=== PATIENT | female | born 1945 | race Caucasian/White ===

== ENCOUNTER 2018-10-21 18:52 | Inpatient (IN) | payer MEDICARE ==
[~2018-10-21] VITALS: Ht 157.5 cm; Wt 111.6 kg
--- NOTE | 2018-10-21 19:01 | NUR ---
Patient arrived at 1810 via [facility], Vitals: 122/58, 99% on room air, 63 pulse, 98.2 axillary temperature, 19 respirations, Edema noted throughout body, patient used bed villanueva at this time, dressing noted to sacrum, denies pain at this time, no signs of distress noted, will endorse admission to on coming nurse
[2018-10-21 19:47] VITALS: BP 129/69
--- NOTE | 2018-10-21 20:00 | NUR ---
Received patient in bed. Alert and verbally responsive. Able to make needs known. Denies any pain and discomfort at this time. No acute distress. No SOB. Kept clean and dry. All needs attended to promptly. Call light within reach. Will continue to monitor.
[2018-10-21] MEDS ORDERED: ASPI81TA31 PO (20:27)
[2018-10-21] MEDS ORDERED: FAMO-132 PO (20:27)
[2018-10-21] MEDS ORDERED: LEVA0.6320 IH (20:27)
[2018-10-21] MEDS ORDERED: METO50TA7 PO (20:27)
[2018-10-21] MEDS ORDERED: ALLO100T PO (20:27)
[2018-10-21] MEDS ORDERED: MAG30ORA PO (20:27)
[2018-10-21] MEDS ORDERED: ACET-73 PO (20:27)
[2018-10-21] MEDS ORDERED: MICO142O TP (20:27)
[2018-10-21] MEDS ORDERED: DOCU-141 PO (20:27)
[2018-10-21] MEDS ORDERED: NYST15PO4 TP ×2 (20:27)
[2018-10-21] MEDS ORDERED: TAMS-3 PO (20:27)
[2018-10-21] MEDS ORDERED: DEXT50DI8 IV (20:27)
[2018-10-21] MEDS ORDERED: LOSA25TA3 PO (20:27)
[2018-10-21] MEDS ORDERED: SIME80TA45 PO (20:27)
[2018-10-21] MEDS ORDERED: BUME1TAB4 PO (20:27)
[2018-10-21] MEDS ORDERED: ONDA4TAB5 PO (20:27)
[2018-10-21] MEDS ORDERED: BISA10SU61 RC (20:27)
[2018-10-21] MEDS ORDERED: ATOR10TA PO (20:27)
[2018-10-21] MEDS ORDERED: MELA3TAB PO (20:27)
[2018-10-21] MEDS ORDERED: DULO20CA PO (20:27)
[2018-10-21] MEDS ORDERED: NA P133E RC (20:27)
[2018-10-21] MEDS ORDERED: FOLI0.8T23 PO (20:27)
[2018-10-21] MEDS ORDERED: SPIR25TA PO (20:27)
[2018-10-21] MEDS ORDERED: TRAZ300T2 PO (20:27)
--- NOTE | 2018-10-21 20:30 | NUR ---
Called [facility] for med reconciliation. Awaiting call back.
--- NOTE | 2018-10-21 21:20 | NUR ---
Received call back from Dr. June with orders to continue all meds at this time.
[2018-10-21] MEDS ORDERED: HYDR-3326 PO (23:23)
[2018-10-21] MEDS ORDERED: IPRA0.2S6 NEB (23:23)
[2018-10-21] MEDS ORDERED: IPRA0.2S48 IH (23:23)
[2018-10-21] MEDS ORDERED: GLUC1KIT IJ (23:23)
[2018-10-21] MEDS ORDERED: FURO20TA4 PO (23:23)
[2018-10-22] MEDS ORDERED: DEXTROSE 50% 50 ML DISP.SYRIN IV PRN (05:30)
[2018-10-22] MEDS ORDERED: INSULIN ASPART 1000 UNITS/10 ML VIAL(NOVOLOG) SQ PRN (05:30)
[2018-10-22 06:12] VITALS: BP 124/73
[2018-10-22] MEDS: BLOOD SUGAR DIAGNOSTIC 1 EACH STRIP VI SCH ×4 (06:54→21:26)
[2018-10-22] MEDS ORDERED: INSULIN LISPRO 1000 UNITS/10 ML VIAL(HUMALOG) SQ SCH ×2 (08:45→09:00)
[2018-10-22 09:00] VITALS: BP 124/55
[2018-10-22] MEDS ORDERED: SIMETHICONE 80 MG TAB.CHEW PO PRN (09:00)
[2018-10-22] MEDS ORDERED: FUROSEMIDE 20 MG TABLET PO SCH (09:00)
[2018-10-22] MEDS ORDERED: MAG HYDROX/AL HYDROX/SIMETH 30 ML LIQUID UDC PO PRN (09:00)
[2018-10-22] MEDS ORDERED: ONDANSETRON HCL 4 MG TABLET PO PRN (09:00)
[2018-10-22] MEDS ORDERED: DEXTROSE 50% 50 ML DISP.SYRIN IV SCH (09:00)
[2018-10-22] MEDS ORDERED: ACETAMINOPHEN ES 500 MG TABLET PO PRN (09:00)
[2018-10-22] MEDS ORDERED: BISACODYL 10 MG SUPP.RECT RC PRN (09:00)
[2018-10-22] MEDS ORDERED: NYSTATIN POWDER 15 GM BOTTLE TP PRN (09:00)
[2018-10-22] MEDS ORDERED: IPRATROPIUM BROMIDE 0.5 MG/2.5 ML NEBU IH SCH (09:00)
[2018-10-22] MEDS ORDERED: FLEET ENEMA 133 ML BOTTLE RC PRN (09:00)
[2018-10-22] MEDS ORDERED: GLUCAGON,HUMAN RECOMBINANT 1 MG VIAL IM PRN (09:15)
[2018-10-22] MEDS: FAMOTIDINE 20 MG TABLET PO SCH (09:42)
[2018-10-22] MEDS: SPIRONOLACTONE 25 MG TABLET PO SCH (09:43)
[2018-10-22] MEDS: BUMETANIDE 1 MG TABLET PO SCH (09:43)
[2018-10-22] MEDS: DULOXETINE 20 MG CAPSULE.DR PO SCH (09:43)
[2018-10-22] MEDS: ASPIRIN 81 MG TAB.CHEW PO SCH (09:43)
[2018-10-22] MEDS: ALLOPURINOL 100 MG TABLET PO SCH (09:43)
[2018-10-22] MEDS: DOCUSATE SODIUM 100 MG CAPSULE PO SCH ×2 (09:43→17:25)
[2018-10-22] MEDS: METOPROLOL SUCCINATE XL 50 MG TAB.SR.24H PO SCH (09:44)
--- NOTE | 2018-10-22 09:45 | NUR ---
Received pt. on bed, comfortable in no distress. A/OX3 and able to make her needs known. Denies CP or SOB, on RA tolerating well with 94% SpO2. All due medications administered as ordered and tolerated well. Unable to administer Monistat cream due to lack of inventory per pharmacy, MD aware. No s/sx of hypo/hyperglycemia. On 1500 ml fluid restriction for CH. All pt. needs attended and met promptly. Safety measures in place. Call light and all frequently used items within pt. reach.
[2018-10-22] MEDS: LOSARTAN POTASSIUM 25 MG TABLET PO SCH (10:05)
[2018-10-22] MEDS ORDERED: MICONAZOLE NITRATE CREAM 15 GM TUBE TOP SCH (11:00)
[2018-10-22] MEDS ORDERED: INSULIN LISPRO 1000 UNITS/10 ML VIAL(HUMALOG) SQ PRN (11:38)
[2018-10-22] MEDS: INSULIN LISPRO 1000 UNITS/10 ML VIAL(HUMALOG) SQ PRN ×2 (11:44→17:26)
[2018-10-22] MEDS ORDERED: LEVALBUTEROL HCL NEB 0.63 MG/3 ML NEBU IH SCH (12:00)
[2018-10-22] MEDS ORDERED: NYSTATIN POWDER 15 GM BOTTLE TP SCH (13:00)
[2018-10-22] MEDS: ALBUTEROL SULFATE 1.25 MG/3 ML NEBU NEB SCH ×2 (13:03→19:47)
[2018-10-22] MEDS: IPRATROPIUM BROMIDE 0.5 MG/2.5 ML NEBU NEB SCH ×2 (13:03→19:47)
--- NOTE | 2018-10-22 13:42 | NUR ---
INTERDISCIPLINARY TEAM CONFERENCE
[2018-10-22] MEDS: TAMSULOSIN HCL 0.4 MG CAP.SR.24H PO SCH (14:05)
--- NOTE | 2018-10-22 14:37 | NUR ---
WOUND CARE CONSULT: PT PRESENTS WITH 4+ PITTING EDEMA TO LOWER EXTREMITIES, DRY SKIN ON LOWER LEGS, RASH WITH SKIN STAINING TO SACRAL/BUTTOCKS AREA AND LEFT HEEL INTACT DEEP TISSUE INJURY, PRESENT ON ADMISSION. RECOMMENDATIONS MADE FOR WOUND CARE AND SKIN PROTECTION. DISCUSSED WITH NURSING STAFF. WILL SEE PRN. CURRENT LENNIE SCORE IS 15. MD IN AGREEMENT WITH PLAN OF CARE. Addendum: 10/22/18 at 1441 by EDWIN CARRILLO RN Amended: Links added.
[2018-10-22] MEDS: Z GUARD REMEDY PASTE 57 GM TUBE TOP PRN (17:25)
[2018-10-22] MEDS: CLOTRIMAZOLE 1% CREAM 30 GM TUBE TOP SCH (17:29)
[2018-10-22 17:30] VITALS: BP 122/61
--- NOTE | 2018-10-22 18:21 | NUR ---
End of shift note: All due medications administered as ordered and tolerated well. No sign of acute distress or SOB was noted. Kept pt clean and dry throughout this shift. Safety measures maintained. All needs attended and met promptly. Bed in low position, brake and alarm on, side rails up x2 as an enabler. Call light and all frequently used items within pt. reach. Will endorse to next shift accordingly.
--- NOTE | 2018-10-22 19:45 | NUR ---
Patient received in bed. Confused. No acute distress or SOB was noted. On room air. No complain of pain at this time. Patient assessed. Safety measures maintained, Fall precaution observed, Bed in low position, brake and alarm on, side rails up x2 for safety. Continue to monitor.
[2018-10-22 20:41] VITALS: BP 122/72
[2018-10-22] MEDS: ATORVASTATIN 10 MG TABLET PO SCH (21:26)
[2018-10-22] MEDS: TRAZODONE 50 MG TABLET PO SCH (21:26)
[2018-10-22] MEDS: FOLIC ACID/VITAMIN B COMP W-C TABLET PO SCH (21:26)
[2018-10-23] MEDS: IPRATROPIUM BROMIDE 0.5 MG/2.5 ML NEBU NEB SCH ×4 (00:51→20:10)
[2018-10-23] MEDS: ALBUTEROL SULFATE 1.25 MG/3 ML NEBU NEB SCH ×4 (00:51→20:10)
--- NOTE | 2018-10-23 06:28 | NUR ---
End of the shift note Patient was stable throughout the shift and had a good sleep last night. No acute distress or SOB was noted. On room air. No Complain of pain. Patient assessed. All medications given as ordered and well tolerated. Accu check done, BS 132 @ 2100 and 116 @ 0630 with no coverage based on sliding scale. All needs attended promptly. Safety measures maintained, Fall precaution observed, Bed in low position, brake and alarm on, side rails up x2 for safety. Continue to monitor and will endorse to the oncoming day shift nurse.
[2018-10-23] MEDS: BLOOD SUGAR DIAGNOSTIC 1 EACH STRIP VI SCH ×4 (06:37→20:53)
[2018-10-23 06:43] VITALS: BP 111/64
[2018-10-23 07:28] LABS: BASOPHILS # (AUTO) 0.1 K/uL (0.0-8.0); EOSINOPHILS # (AUTO) 0.2 K/uL (0.0-0.7); EOSINOPHILS % (AUTO) 4.9 % (0.0-7.0); HEMATOCRIT 30.5 % (31.2-41.9); HEMOGLOBIN 9.7 g/dL (10.9-14.3); LYMPHOCYTES # (AUTO) 0.5 K/uL (20.0-40.0); LYMPHOCYTES % (AUTO) 14.6 % (20.5-51.5); MEAN CORPUSCULAR HEMOGLOBIN 32.3 uug (24.7-32.8); MEAN CORPUSCULAR HGB CONC 32 g/dL (32.3-35.6); MEAN CORPUSCULAR VOLUME 101.7 fL (75.5-95.3); MONOCYTES # (AUTO) 0.8 K/uL (2.0-10.0); MONOCYTES % (AUTO) 21.4 % (0.0-11.0); NEUTROPHILS # (AUTO) 2.1 K/uL (1.8-8.9); NEUTROPHILS % (AUTO) 57.1 % (38.5-71.5); PLATELET COUNT (AUTO) 139 K/uL (179-408); WHITE BLOOD COUNT (AUTO) 3.8 K/uL (3.8-11.8)
[2018-10-23 07:50] LABS: CARBON DIOXIDE 29 mmol/L (21-32); CHLORIDE 102 mmol/L (98-107); CREATININE 1.7 mg/dL (0.6-1.3); GLUCOSE 120 mg/dL (74-106); MAGNESIUM 1.3 mg/dL (1.8-2.4); POTASSIUM 3.6 mmol/L (3.5-5.1); UREA NITROGEN, BLOOD 47 mg/dL (7-18)
[2018-10-23 08:00] VITALS: BP 120/61
[2018-10-23] MEDS: TAMSULOSIN HCL 0.4 MG CAP.SR.24H PO SCH (08:34)
[2018-10-23] MEDS: DULOXETINE 20 MG CAPSULE.DR PO SCH (08:34)
[2018-10-23] MEDS: ALLOPURINOL 100 MG TABLET PO SCH (08:35)
[2018-10-23] MEDS: DOCUSATE SODIUM 100 MG CAPSULE PO SCH ×2 (08:35→16:37)
[2018-10-23] MEDS: BUMETANIDE 1 MG TABLET PO SCH ×2 (08:35→16:37)
[2018-10-23] MEDS: METOPROLOL SUCCINATE XL 50 MG TAB.SR.24H PO SCH (08:35)
[2018-10-23] MEDS: SPIRONOLACTONE 25 MG TABLET PO SCH (08:35)
[2018-10-23] MEDS: FAMOTIDINE 20 MG TABLET PO SCH (08:35)
[2018-10-23] MEDS: ASPIRIN 81 MG TAB.CHEW PO SCH (08:36)
[2018-10-23] MEDS: LOSARTAN POTASSIUM 25 MG TABLET PO SCH (08:36)
[2018-10-23] MEDS: CLOTRIMAZOLE 1% CREAM 30 GM TUBE TOP SCH ×2 (08:37→16:38)
[2018-10-23] MEDS ORDERED: MICONAZOLE NITRATE CREAM 15 GM TUBE TOP SCH (09:00)
[2018-10-23 09:07] LABS: EOSINOPHILS % (MANUAL) 5 % (0-8); LYMPHOCYTES % (MANUAL) 14 % (20-40); MONOCYTES % (MANUAL) 16 % (2-10); NEUTROPHILS % (MANUAL) 65 % (42-75)
--- NOTE | 2018-10-23 11:28 | NUR ---
Received patient awake in stable condition. no complaint of pain/discomfort noted. chest x-ray, EKG and echocardiogram done as requested by cardio MD Elena, awaiting result. Continue on fluid restriction 1500cc daily. not in distress. will continue monitor
[2018-10-23] MEDS ORDERED: MAGNESIUM OXIDE 400 MG TABLET PO ONE (12:15)
[2018-10-23] MEDS: POTASSIUM CHLORIDE 20 MEQ POWDER PACKET PO ONE ×2 (12:48→16:53)
--- NOTE | 2018-10-23 13:40 | NUR ---
Patient seen and examined by MD Valentine. ordered and magnesium 800mg PO potassium 20mg packet abnormal labs. Patient refuse potassium despite of encouragement and education. not in distress. Continue therapy for ambulation, ADL and transfer ability. will continue monitor
[2018-10-23] MEDS: ACETAMINOPHEN 325 MG TABLET PO PRN (14:00)
[2018-10-23] MEDS: INSULIN LISPRO 1000 UNITS/10 ML VIAL(HUMALOG) SQ PRN ×2 (15:23→16:27)
[2018-10-23 16:00] VITALS: BP 132/65
--- NOTE | 2018-10-23 16:53 | NUR ---
Patient agree to take the potassium 20mg packet now.
--- NOTE | 2018-10-23 20:00 | NUR ---
Received patient laying in bed. No acute distress noted. A/O x 2-3 with periods of confusion. Patient is arousal when name is called. Appears to be lethargic. BP is on the lower end but non symptomatic. Fluid restriction. Denies pain or SOB. On room air. Rigth AC scab. Sacral redness. Zguard and mepilex applied. Edematous on bilateral lower extremities with 2+ pitting edema. Small BM today. Voiding ok. Safety initiated. Call light within reach. Will closely monitor.
[2018-10-23 20:12] VITALS: BP 101/48
[2018-10-23] MEDS: ATORVASTATIN 10 MG TABLET PO SCH (20:49)
[2018-10-23] MEDS: FOLIC ACID/VITAMIN B COMP W-C TABLET PO SCH (20:49)
[2018-10-23] MEDS: TRAZODONE 50 MG TABLET PO SCH (21:00)
--- NOTE | 2018-10-23 21:00 | NUR ---
Held Trazodone PO because patient is lethargic but non symptomatic. Will continue to monitor.
[2018-10-24] MEDS: IPRATROPIUM BROMIDE 0.5 MG/2.5 ML NEBU NEB SCH ×4 (01:31→20:01)
[2018-10-24] MEDS: ALBUTEROL SULFATE 1.25 MG/3 ML NEBU NEB SCH ×4 (01:31→20:01)
[2018-10-24 05:10] VITALS: BP 106/54
--- NOTE | 2018-10-24 05:46 | NUR ---
No changes t/o shift. Patient slept t/o shift. Patient remains A/O x 3 with periods of confusion. Denies pain at the moment. Turned and repositioned Q2H heels a float. Vital signs stable. BM x 1. Good urine output. Safety and comfort measures maintained t/o shift. All meds given as ordered. All needs met.
[2018-10-24] MEDS: BLOOD SUGAR DIAGNOSTIC 1 EACH STRIP VI SCH ×4 (06:31→20:31)
[2018-10-24 08:00] VITALS: BP 106/36
[2018-10-24] MEDS: DOCUSATE SODIUM 100 MG CAPSULE PO SCH ×2 (08:19→16:02)
[2018-10-24] MEDS: MAGNESIUM OXIDE 400 MG TABLET PO SCH (08:19)
[2018-10-24] MEDS: SPIRONOLACTONE 25 MG TABLET PO SCH (08:19)
[2018-10-24] MEDS: FAMOTIDINE 20 MG TABLET PO SCH (08:19)
[2018-10-24] MEDS: TAMSULOSIN HCL 0.4 MG CAP.SR.24H PO SCH (08:19)
[2018-10-24] MEDS: ALLOPURINOL 100 MG TABLET PO SCH (08:20)
[2018-10-24] MEDS: BUMETANIDE 1 MG TABLET PO SCH ×2 (08:20→16:02)
[2018-10-24] MEDS: LOSARTAN POTASSIUM 25 MG TABLET PO SCH (08:21)
[2018-10-24] MEDS: METOPROLOL SUCCINATE XL 50 MG TAB.SR.24H PO SCH (08:22)
[2018-10-24] MEDS: CLOTRIMAZOLE 1% CREAM 30 GM TUBE TOP SCH ×2 (08:23→16:02)
[2018-10-24] MEDS: DULOXETINE 20 MG CAPSULE.DR PO SCH (08:23)
[2018-10-24] MEDS: ASPIRIN 81 MG TAB.CHEW PO SCH (08:25)
[2018-10-24] MEDS: INSULIN LISPRO 1000 UNITS/10 ML VIAL(HUMALOG) SQ PRN ×3 (08:28→16:08)
--- NOTE | 2018-10-24 09:28 | NUR ---
Received pt. on bed, comfortable in no distress. A/OX3 and able to make her needs known. Denies CP or SOB, on RA tolerating well with 100% SpO2. All due medications administered as ordered and tolerated well. Held AM BP medication due to decrease BP (106/36). No s/sx of hypo/hyperglycemia. On 1500 ml fluid restriction for CHF. Floated bilateral lower ext. due to edema. All pt. needs attended and met promptly. Safety measures in place. Call light and all frequently used items within pt. reach.
[2018-10-24] MEDS: Z GUARD REMEDY PASTE 57 GM TUBE TOP PRN (11:45)
[2018-10-24] MEDS: MINERAL OIL/PETROLATUM,WHITE 57 GM TUBE TOP PRN (11:45)
--- NOTE | 2018-10-24 15:56 | NUR ---
INDIVIDUALIZED OVERALL PLAN OF CARE
[2018-10-24 16:10] VITALS: BP 96/39
--- NOTE | 2018-10-24 19:45 | NUR ---
Patient received in bed. AAO x2. No acute distress or SOB was noted. On room air. No complain of pain at this time. Patient assessed. Safety measures maintained, Fall precaution observed, Bed in low position, brake and alarm on, side rails up x2 for safety. Continue to monitor.
[2018-10-24 20:36] VITALS: BP 137/53
[2018-10-24] MEDS: ATORVASTATIN 10 MG TABLET PO SCH (21:05)
[2018-10-24] MEDS: FOLIC ACID/VITAMIN B COMP W-C TABLET PO SCH (21:05)
[2018-10-24] MEDS: TRAZODONE 50 MG TABLET PO SCH (21:05)
[2018-10-25] MEDS: IPRATROPIUM BROMIDE 0.5 MG/2.5 ML NEBU NEB SCH ×4 (01:30→18:50)
[2018-10-25] MEDS: ALBUTEROL SULFATE 1.25 MG/3 ML NEBU NEB SCH ×4 (01:30→18:50)
--- NOTE | 2018-10-25 01:43 | NUR ---
Pt asleep. No s/s of respiratory distress noted. Earlier pt asked to do not wake her up for HHN tx. RN Cherelle notified.
--- NOTE | 2018-10-25 05:02 | NUR ---
Patient was concerned about having dementia. Stated, "my mother had dementia and I started to forget things". She looks sad and started crying. Reassured patient that her concern will be endorsed to the doctor for new order to prevent dementia. Continue to monitor.
[2018-10-25 05:59] VITALS: BP 101/54
[2018-10-25] MEDS: BLOOD SUGAR DIAGNOSTIC 1 EACH STRIP VI SCH ×4 (06:43→21:12)
--- NOTE | 2018-10-25 06:59 | NUR ---
End of the shift note Patient was stable throughout the shift and had a good sleep last night. No acute distress or SOB was noted. On room air. No Complain of pain. Patient assessed. All medications given as ordered and well tolerated. Accu check done, BS 184 @ 2100, no coverage based on sliding scale, and 176 @ 0630. All needs attended promptly. Safety measures maintained, Fall precaution observed, Bed in low position, brake and alarm on, side rails up x2 for safety. Continue to monitor and will endorse to the oncoming day shift nurse.
[2018-10-25 08:03] VITALS: BP 124/51
--- NOTE | 2018-10-25 08:05 | NUR ---
Received patient awake, alert x2-3. On room air sating well. Not in any form of distress. No SOB no chest pains or dizziness noted. Denies any pain at the moment.
[2018-10-25] MEDS: INSULIN LISPRO 1000 UNITS/10 ML VIAL(HUMALOG) SQ PRN ×3 (08:12→17:21)
[2018-10-25] MEDS: DOCUSATE SODIUM 100 MG CAPSULE PO SCH ×2 (09:00→17:00)
--- NOTE | 2018-10-25 09:00 | NUR ---
Shower with maximum assistance. tolerated therapy well. No pain noted.
[2018-10-25] MEDS: ALLOPURINOL 100 MG TABLET PO SCH (09:45)
[2018-10-25] MEDS: ASPIRIN 81 MG TAB.CHEW PO SCH (09:45)
[2018-10-25] MEDS: TAMSULOSIN HCL 0.4 MG CAP.SR.24H PO SCH (09:45)
[2018-10-25] MEDS: BUMETANIDE 1 MG TABLET PO SCH ×2 (09:45→17:24)
[2018-10-25] MEDS: LOSARTAN POTASSIUM 25 MG TABLET PO SCH (09:46)
[2018-10-25] MEDS: MAGNESIUM OXIDE 400 MG TABLET PO SCH (09:46)
[2018-10-25] MEDS: SPIRONOLACTONE 25 MG TABLET PO SCH (09:46)
[2018-10-25] MEDS: FAMOTIDINE 20 MG TABLET PO SCH (09:46)
[2018-10-25] MEDS: METOPROLOL SUCCINATE XL 50 MG TAB.SR.24H PO SCH (09:46)
[2018-10-25] MEDS: CLOTRIMAZOLE 1% CREAM 30 GM TUBE TOP SCH ×2 (09:47→17:25)
[2018-10-25] MEDS: DULOXETINE 20 MG CAPSULE.DR PO SCH (09:51)
--- NOTE | 2018-10-25 11:00 | NUR ---
Seen and examined by Dr June, informed that patient was depressed lately and had problems with memory. Informed about platelet of 139. Dr said he will look into it.
[2018-10-25 16:05] VITALS: BP 120/59
[2018-10-25] MEDS: Z GUARD REMEDY PASTE 57 GM TUBE TOP PRN (17:28)
--- NOTE | 2018-10-25 18:50 | NUR ---
Pt awake. No s/s of respiratory distress noted. Pt refused HHN tx. GANESH Chowdary notified.
--- NOTE | 2018-10-25 19:40 | NUR ---
Patient received in bed. confused. No acute distress or SOB was noted. On room air. No complain of pain at this time. Patient assessed. Safety measures maintained, Fall precaution observed, Bed in low position, brake and alarm on, side rails up x2 for safety. Continue to monitor.
[2018-10-25 20:28] VITALS: BP 111/52
[2018-10-25] MEDS: ATORVASTATIN 10 MG TABLET PO SCH (21:00)
[2018-10-25] MEDS: FOLIC ACID/VITAMIN B COMP W-C TABLET PO SCH (21:00)
[2018-10-25] MEDS: TRAZODONE 50 MG TABLET PO SCH (21:09)
--- NOTE | 2018-10-25 21:20 | NUR ---
Dr. El Quesada visited the patient and talked to her. Dr. Quesada increased the dose of Cymbalta to 40 mg daily. Continue to monitor.
--- NOTE | 2018-10-25 21:45 | NUR ---
Patient was very confused. VS was stable. Refused all the due medications including Lipitor 10 mg tab, Nephro-erwin, and Trazodone 50 mg tab. Stating, "I had all medication before". Tried to orient her multiple times, but still refused. Her BS was 207 @ 2100. She also refused the 2 units insulin for coverage. Continue to monitor.
[2018-10-26] MEDS: IPRATROPIUM BROMIDE 0.5 MG/2.5 ML NEBU NEB SCH ×4 (00:30→20:21)
[2018-10-26] MEDS: ALBUTEROL SULFATE 1.25 MG/3 ML NEBU NEB SCH ×4 (00:30→20:21)
[2018-10-26 05:02] VITALS: BP 110/53
[2018-10-26] MEDS: BLOOD SUGAR DIAGNOSTIC 1 EACH STRIP VI SCH ×4 (06:54→20:47)
--- NOTE | 2018-10-26 07:04 | NUR ---
End of the shift note Patient was confused throughout the shift, but had a good sleep last night. No acute distress or SOB was noted. On room air. No Complain of pain. Patient assessed. Accu check done, BS 207 @ 2100, she refused 2 units insulin coverage based on sliding scale, and 189 @ 0630. All needs attended promptly. Safety measures maintained, Fall precaution observed, Bed in low position, brake and alarm on, side rails up x2 for safety. Continue to monitor and will endorse to the oncoming day shift nurse.
[2018-10-26 08:00] VITALS: BP 122/72
[2018-10-26] MEDS: ALLOPURINOL 100 MG TABLET PO SCH (08:25)
[2018-10-26] MEDS: FAMOTIDINE 20 MG TABLET PO SCH (08:25)
[2018-10-26] MEDS: BUMETANIDE 1 MG TABLET PO SCH ×2 (08:25→16:38)
[2018-10-26] MEDS: DOCUSATE SODIUM 100 MG CAPSULE PO SCH ×2 (08:25→16:38)
[2018-10-26] MEDS: ASPIRIN 81 MG TAB.CHEW PO SCH (08:25)
[2018-10-26] MEDS: MAGNESIUM OXIDE 400 MG TABLET PO SCH (08:26)
[2018-10-26] MEDS: METOPROLOL SUCCINATE XL 50 MG TAB.SR.24H PO SCH (08:26)
[2018-10-26] MEDS: LOSARTAN POTASSIUM 25 MG TABLET PO SCH (08:26)
[2018-10-26] MEDS: SPIRONOLACTONE 25 MG TABLET PO SCH (08:26)
[2018-10-26] MEDS: TAMSULOSIN HCL 0.4 MG CAP.SR.24H PO SCH (08:26)
[2018-10-26] MEDS: CLOTRIMAZOLE 1% CREAM 30 GM TUBE TOP SCH ×2 (08:27→16:39)
[2018-10-26] MEDS: DULOXETINE 20 MG CAPSULE.DR PO SCH (08:27)
[2018-10-26] MEDS: INSULIN LISPRO 1000 UNITS/10 ML VIAL(HUMALOG) SQ PRN ×4 (08:29→20:54)
--- NOTE | 2018-10-26 08:52 | NUR ---
Received pt. on bed, comfortable in no distress. A/OX3 and able to make her needs known. Denies CP or SOB, on RA tolerating well with 97% SpO2. All due medications administered as ordered and tolerated well. No s/sx of hypo/hyperglycemia, insulin coverage given as ordered. Floated bilateral heels for skin mgt/edema. Fluid restrictions maintained, no s/sx of dehydration. All pt. needs attended and met promptly. Safety measures in place. Call light and all frequently used items within pt. reach.
[2018-10-26 16:00] VITALS: BP 128/62
--- NOTE | 2018-10-26 18:30 | NUR ---
End of shift note: No significant change during this shift. All due medications administered as ordered and tolerated well. No sign of acute distress or SOB was noted. Kept pt clean and dry throughout this shift. Safety measures maintained. All needs attended and met promptly. Bed in low position, brake and alarm on, side rails up x2 as an enabler. Call light and all frequently used items within pt. reach. Will endorse to next shift accordingly
--- NOTE | 2018-10-26 19:35 | NUR ---
Received pt in bed, appearing to be asleep but easily arousable to verbal stimuli and light touch. No acute distress noted. Verbally responsive and able to make needs known. Denies pain or discomfort at this time. All safety measures and fall precautions maintained. Call light and all personal belongings within reach. Will continue to monitor.
[2018-10-26] MEDS: FOLIC ACID/VITAMIN B COMP W-C TABLET PO SCH (20:46)
[2018-10-26] MEDS: TRAZODONE 50 MG TABLET PO SCH (20:46)
[2018-10-26] MEDS: ATORVASTATIN 10 MG TABLET PO SCH (20:46)
[2018-10-26 20:54] VITALS: BP 100/52
[2018-10-27] MEDS: IPRATROPIUM BROMIDE 0.5 MG/2.5 ML NEBU NEB SCH ×4 (01:09→19:46)
[2018-10-27] MEDS: ALBUTEROL SULFATE 1.25 MG/3 ML NEBU NEB SCH ×4 (01:09→19:46)
[2018-10-27 04:50] VITALS: BP 128/57
[2018-10-27] MEDS: BLOOD SUGAR DIAGNOSTIC 1 EACH STRIP VI SCH ×4 (06:37→20:43)
[2018-10-27 08:00] VITALS: BP 115/53
[2018-10-27] MEDS: METOPROLOL SUCCINATE XL 50 MG TAB.SR.24H PO SCH (09:00)
[2018-10-27] MEDS: LOSARTAN POTASSIUM 25 MG TABLET PO SCH (09:00)
[2018-10-27] MEDS: ALLOPURINOL 100 MG TABLET PO SCH (09:13)
[2018-10-27] MEDS: DOCUSATE SODIUM 100 MG CAPSULE PO SCH ×2 (09:13→17:13)
[2018-10-27] MEDS: FAMOTIDINE 20 MG TABLET PO SCH (09:13)
[2018-10-27] MEDS: ASPIRIN 81 MG TAB.CHEW PO SCH (09:13)
[2018-10-27] MEDS: BUMETANIDE 1 MG TABLET PO SCH ×2 (09:13→17:14)
[2018-10-27] MEDS: SPIRONOLACTONE 25 MG TABLET PO SCH (09:14)
[2018-10-27] MEDS: TAMSULOSIN HCL 0.4 MG CAP.SR.24H PO SCH (09:14)
[2018-10-27] MEDS: MAGNESIUM OXIDE 400 MG TABLET PO SCH (09:14)
[2018-10-27] MEDS: DULOXETINE 20 MG CAPSULE.DR PO SCH (09:15)
[2018-10-27] MEDS: CLOTRIMAZOLE 1% CREAM 30 GM TUBE TOP SCH ×2 (09:50→17:18)
[2018-10-27] MEDS: INSULIN LISPRO 1000 UNITS/10 ML VIAL(HUMALOG) SQ PRN ×2 (11:44→17:10)
[2018-10-27 16:00] VITALS: BP 110/62
[2018-10-27 20:14] VITALS: BP 111/62
[2018-10-27] MEDS: TRAZODONE 50 MG TABLET PO SCH (20:40)
[2018-10-27] MEDS: ATORVASTATIN 10 MG TABLET PO SCH (20:40)
[2018-10-27] MEDS: FOLIC ACID/VITAMIN B COMP W-C TABLET PO SCH (20:40)
[2018-10-28] MEDS: ALBUTEROL SULFATE 1.25 MG/3 ML NEBU NEB SCH ×5 (00:30→19:50)
[2018-10-28] MEDS: IPRATROPIUM BROMIDE 0.5 MG/2.5 ML NEBU NEB SCH ×5 (00:30→19:50)
[2018-10-28 05:59] VITALS: BP 118/68
[2018-10-28] MEDS: BLOOD SUGAR DIAGNOSTIC 1 EACH STRIP VI SCH ×4 (06:45→20:05)
[2018-10-28 07:15] VITALS: BP 115/56
[2018-10-28 07:21] LABS: BASOPHILS # (AUTO) 0.1 K/uL (0.0-8.0); BASOPHILS % (AUTO) 1.2 % (0.0-2.0); EOSINOPHILS # (AUTO) 0.3 K/uL (0.0-0.7); EOSINOPHILS % (AUTO) 7.4 % (0.0-7.0); HEMATOCRIT 30.5 % (31.2-41.9); HEMOGLOBIN 9.8 g/dL (10.9-14.3); LYMPHOCYTES # (AUTO) 0.7 K/uL (20.0-40.0); LYMPHOCYTES % (AUTO) 14.9 % (20.5-51.5); MEAN CORPUSCULAR HEMOGLOBIN 32.6 uug (24.7-32.8); MEAN CORPUSCULAR HGB CONC 32 g/dL (32.3-35.6); MEAN CORPUSCULAR VOLUME 101.5 fL (75.5-95.3); MONOCYTES # (AUTO) 0.8 K/uL (2.0-10.0); MONOCYTES % (AUTO) 17.4 % (0.0-11.0); NEUTROPHILS # (AUTO) 2.6 K/uL (1.8-8.9); NEUTROPHILS % (AUTO) 59.1 % (38.5-71.5); PLATELET COUNT (AUTO) 109 K/uL (179-408); WHITE BLOOD COUNT (AUTO) 4.4 K/uL (3.8-11.8)
[2018-10-28 07:35] LABS: ALANINE AMINOTRANSFERASE 15 U/L (14-59); ALKALINE PHOSPHATASE 135 U/L (50-136); ASPARTATE AMINOTRANSFERASE 15 U/L (15-37); BILIRUBIN,TOTAL 1.3 mg/dL (0.2-1.0); CARBON DIOXIDE 28 mmol/L (21-32); CHLORIDE 103 mmol/L (98-107); CREATININE 1.9 mg/dL (0.6-1.3); GLUCOSE 126 mg/dL (74-106); MAGNESIUM 1.4 mg/dL (1.8-2.4); PHOSPHOROUS 3.1 mg/dL (2.5-4.9); POTASSIUM 3.8 mmol/L (3.5-5.1); TOTAL PROTEIN, SERUM 6.2 g/dL (6.4-8.2); UREA NITROGEN, BLOOD 46 mg/dL (7-18)
[2018-10-28 07:53] LABS: EOSINOPHILS % (MANUAL) 3 % (0-8); LYMPHOCYTES % (MANUAL) 15 % (20-40); MONOCYTES % (MANUAL) 17 % (2-10); NEUTROPHILS % (MANUAL) 65 % (42-75)
[2018-10-28] MEDS: MAGNESIUM OXIDE 400 MG TABLET PO SCH (08:40)
[2018-10-28] MEDS: ASPIRIN 81 MG TAB.CHEW PO SCH (08:40)
[2018-10-28] MEDS: FAMOTIDINE 20 MG TABLET PO SCH (08:40)
[2018-10-28] MEDS: ALLOPURINOL 100 MG TABLET PO SCH (08:40)
[2018-10-28] MEDS: DOCUSATE SODIUM 100 MG CAPSULE PO SCH ×2 (08:40→17:17)
[2018-10-28] MEDS: SPIRONOLACTONE 25 MG TABLET PO SCH (08:40)
[2018-10-28] MEDS: BUMETANIDE 1 MG TABLET PO SCH ×2 (08:41→17:17)
[2018-10-28] MEDS: TAMSULOSIN HCL 0.4 MG CAP.SR.24H PO SCH (08:42)
[2018-10-28] MEDS: DULOXETINE 20 MG CAPSULE.DR PO SCH (08:42)
[2018-10-28] MEDS: CLOTRIMAZOLE 1% CREAM 30 GM TUBE TOP SCH ×2 (08:43→17:18)
[2018-10-28] MEDS: METOPROLOL SUCCINATE XL 50 MG TAB.SR.24H PO SCH (10:00)
[2018-10-28] MEDS: LOSARTAN POTASSIUM 25 MG TABLET PO SCH (10:00)
[2018-10-28] MEDS: INSULIN LISPRO 1000 UNITS/10 ML VIAL(HUMALOG) SQ PRN ×2 (12:03→17:24)
[2018-10-28] MEDS ORDERED: MAGNESIUM OXIDE 400 MG TABLET PO ONE (15:00)
[2018-10-28 15:53] VITALS: BP 138/60
[2018-10-28 19:49] VITALS: BP 113/66
[2018-10-28] MEDS: TRAZODONE 50 MG TABLET PO SCH (20:04)
[2018-10-28] MEDS: FOLIC ACID/VITAMIN B COMP W-C TABLET PO SCH (20:05)
[2018-10-28] MEDS: ATORVASTATIN 10 MG TABLET PO SCH (20:05)
[2018-10-29] MEDS: IPRATROPIUM BROMIDE 0.5 MG/2.5 ML NEBU NEB SCH ×4 (00:30→19:22)
[2018-10-29] MEDS: ALBUTEROL SULFATE 1.25 MG/3 ML NEBU NEB SCH ×4 (00:30→19:23)
[2018-10-29 06:02] VITALS: BP 112/60
[2018-10-29] MEDS: BLOOD SUGAR DIAGNOSTIC 1 EACH STRIP VI SCH ×4 (06:47→21:22)
[2018-10-29 08:05] VITALS: BP 110/44
[2018-10-29] MEDS: INSULIN LISPRO 1000 UNITS/10 ML VIAL(HUMALOG) SQ PRN ×3 (08:13→21:29)
[2018-10-29] MEDS: LOSARTAN POTASSIUM 25 MG TABLET PO SCH (09:00)
[2018-10-29] MEDS: BUMETANIDE 1 MG TABLET PO SCH ×2 (09:04→17:22)
[2018-10-29] MEDS: HYDROCODONE/APAP 5-325MG TABLET PO PRN (09:05)
[2018-10-29] MEDS: DOCUSATE SODIUM 100 MG CAPSULE PO SCH ×2 (09:05→17:00)
[2018-10-29] MEDS: TAMSULOSIN HCL 0.4 MG CAP.SR.24H PO SCH (09:07)
[2018-10-29] MEDS: METOPROLOL SUCCINATE XL 50 MG TAB.SR.24H PO SCH (09:07)
[2018-10-29] MEDS: FAMOTIDINE 20 MG TABLET PO SCH (09:08)
[2018-10-29] MEDS: SPIRONOLACTONE 25 MG TABLET PO SCH (09:08)
[2018-10-29] MEDS: MAGNESIUM OXIDE 400 MG TABLET PO SCH (09:08)
[2018-10-29] MEDS: ASPIRIN 81 MG TAB.CHEW PO SCH (09:09)
[2018-10-29] MEDS: DULOXETINE 20 MG CAPSULE.DR PO SCH (09:10)
[2018-10-29] MEDS: ALLOPURINOL 100 MG TABLET PO SCH (09:11)
[2018-10-29] MEDS: CLOTRIMAZOLE 1% CREAM 30 GM TUBE TOP SCH ×2 (10:31→17:23)
[2018-10-29] MEDS ORDERED: ZOLPIDEM 5 MG TABLET PO PRN (15:30)
--- NOTE | 2018-10-29 15:41 | NUR ---
INTERDISCIPLINARY TEAM CONFERENCE
[2018-10-29 17:07] VITALS: BP 116/44
--- NOTE | 2018-10-29 19:45 | NUR ---
Patient received in bed. AAO x2. No acute distress or SOB was noted. On room air. No complain of pain at this time. Patient assessed. Safety measures maintained, Fall precaution observed, Bed in low position, brake and alarm on, side rails up x2 for safety. Call light and frequently using belongings within reach. Continue to monitor.
[2018-10-29 20:54] VITALS: BP 108/43
[2018-10-29] MEDS ORDERED: TRAZODONE 50 MG TABLET PO SCH (21:00)
[2018-10-29] MEDS: FOLIC ACID/VITAMIN B COMP W-C TABLET PO SCH (21:23)
[2018-10-29] MEDS: ATORVASTATIN 10 MG TABLET PO SCH (21:23)
[2018-10-30] MEDS: IPRATROPIUM BROMIDE 0.5 MG/2.5 ML NEBU NEB SCH ×4 (00:59→20:45)
[2018-10-30] MEDS: ALBUTEROL SULFATE 1.25 MG/3 ML NEBU NEB SCH ×4 (00:59→20:45)
--- NOTE | 2018-10-30 05:22 | NUR ---
End of the shift note Patient was stable throughout the shift and had a good sleep last night. No acute distress or SOB was noted. On room air. No Complain of pain. Patient assessed. All due medication given as ordered and well tolerated. Put Eucerin cream on her feet and legs to prevent dryness. Accu check done, BS 229 @ 2100 with 2 units insulin coverage based on sliding scale. Diaper changed multiple times,All needs attended promptly. Safety measures maintained, Fall precaution observed, Bed in low position, brake and alarm on, side rails up x2 for safety. Call light and personal belongings within reach. Continue to monitor and will endorse to the oncoming day shift nurse.
[2018-10-30 06:09] VITALS: BP 115/50
[2018-10-30] MEDS: BLOOD SUGAR DIAGNOSTIC 1 EACH STRIP VI SCH ×4 (06:31→20:05)
[2018-10-30 07:15] VITALS: BP 115/42
[2018-10-30 08:07] LABS: ALANINE AMINOTRANSFERASE 12 U/L (14-59); ALKALINE PHOSPHATASE 137 U/L (50-136); ASPARTATE AMINOTRANSFERASE 22 U/L (15-37); BILIRUBIN,TOTAL 1.4 mg/dL (0.2-1.0); CARBON DIOXIDE 29 mmol/L (21-32); CHLORIDE 100 mmol/L (98-107); CREATININE 1.9 mg/dL (0.6-1.3); GLUCOSE 184 mg/dL (74-106); POTASSIUM 3.7 mmol/L (3.5-5.1); TOTAL PROTEIN, SERUM 6.4 g/dL (6.4-8.2); UREA NITROGEN, BLOOD 45 mg/dL (7-18)
[2018-10-30] MEDS: DULOXETINE 20 MG CAPSULE.DR PO SCH (09:37)
[2018-10-30] MEDS: ASPIRIN 81 MG TAB.CHEW PO SCH (09:40)
[2018-10-30] MEDS: TAMSULOSIN HCL 0.4 MG CAP.SR.24H PO SCH (09:40)
[2018-10-30] MEDS: ALLOPURINOL 100 MG TABLET PO SCH (09:40)
[2018-10-30] MEDS: MAGNESIUM OXIDE 400 MG TABLET PO SCH (09:40)
[2018-10-30] MEDS: BUMETANIDE 1 MG TABLET PO SCH ×2 (09:40→16:30)
[2018-10-30] MEDS: DOCUSATE SODIUM 100 MG CAPSULE PO SCH ×2 (09:40→16:30)
[2018-10-30] MEDS: LOSARTAN POTASSIUM 25 MG TABLET PO SCH (09:40)
[2018-10-30] MEDS: SPIRONOLACTONE 25 MG TABLET PO SCH (09:41)
[2018-10-30] MEDS: METOPROLOL SUCCINATE XL 50 MG TAB.SR.24H PO SCH (09:41)
[2018-10-30] MEDS: FAMOTIDINE 20 MG TABLET PO SCH (09:41)
[2018-10-30] MEDS: CLOTRIMAZOLE 1% CREAM 30 GM TUBE TOP SCH ×2 (09:41→16:30)
[2018-10-30] MEDS: INSULIN LISPRO 1000 UNITS/10 ML VIAL(HUMALOG) SQ PRN ×2 (12:05→16:40)
[2018-10-30 16:05] VITALS: BP 125/61
[2018-10-30] MEDS: HYDROCODONE/APAP 5-325MG TABLET PO PRN (16:47)
[2018-10-30] MEDS: ATORVASTATIN 10 MG TABLET PO SCH (20:09)
[2018-10-30] MEDS: MELATONIN 3 MG TABLET PO PRN (20:09)
[2018-10-30] MEDS: FOLIC ACID/VITAMIN B COMP W-C TABLET PO SCH (20:09)
[2018-10-30 20:11] VITALS: BP 130/46
--- NOTE | 2018-10-30 21:05 | NUR ---
Received pt sleeping comfortably in bed. Aroused easily to name. AAO x2. No acute distress noted. No c/o pain or discomfort. VSS. All due meds given as ordered. Safety measures maintained. Call light and personal belongings within reach. Will continue to monitor.
[2018-10-31] MEDS: IPRATROPIUM BROMIDE 0.5 MG/2.5 ML NEBU NEB SCH ×5 (02:16→19:30)
[2018-10-31] MEDS: ALBUTEROL SULFATE 1.25 MG/3 ML NEBU NEB SCH ×5 (02:16→19:30)
[2018-10-31 04:50] VITALS: BP 106/58
[2018-10-31] MEDS: BLOOD SUGAR DIAGNOSTIC 1 EACH STRIP VI SCH ×4 (06:42→20:35)
[2018-10-31 07:29] LABS: CARBON DIOXIDE 33 mmol/L (21-32); CHLORIDE 100 mmol/L (98-107); CREATININE 1.8 mg/dL (0.6-1.3); GLUCOSE 151 mg/dL (74-106); POTASSIUM 3.5 mmol/L (3.5-5.1); UREA NITROGEN, BLOOD 41 mg/dL (7-18)
[2018-10-31 08:29] VITALS: BP 117/53
[2018-10-31] MEDS: INSULIN LISPRO 1000 UNITS/10 ML VIAL(HUMALOG) SQ PRN ×2 (08:56→11:52)
[2018-10-31] MEDS: SPIRONOLACTONE 25 MG TABLET PO SCH (08:59)
[2018-10-31] MEDS: DULOXETINE 20 MG CAPSULE.DR PO SCH (08:59)
[2018-10-31] MEDS: DOCUSATE SODIUM 100 MG CAPSULE PO SCH ×2 (09:03→18:14)
[2018-10-31] MEDS: LOSARTAN POTASSIUM 25 MG TABLET PO SCH (09:03)
[2018-10-31] MEDS: BUMETANIDE 1 MG TABLET PO SCH ×2 (09:03→18:13)
[2018-10-31] MEDS: METOPROLOL SUCCINATE XL 50 MG TAB.SR.24H PO SCH (09:04)
[2018-10-31] MEDS: FAMOTIDINE 20 MG TABLET PO SCH (09:04)
[2018-10-31] MEDS: HYDROCODONE/APAP 5-325MG TABLET PO PRN ×2 (09:04→18:14)
[2018-10-31] MEDS: MAGNESIUM OXIDE 400 MG TABLET PO SCH (09:05)
[2018-10-31] MEDS: ASPIRIN 81 MG TAB.CHEW PO SCH (09:05)
[2018-10-31] MEDS: ALLOPURINOL 100 MG TABLET PO SCH (09:06)
[2018-10-31] MEDS: TAMSULOSIN HCL 0.4 MG CAP.SR.24H PO SCH (09:06)
[2018-10-31] MEDS: CLOTRIMAZOLE 1% CREAM 30 GM TUBE TOP SCH ×2 (09:06→18:14)
[2018-10-31 16:30] VITALS: BP 125/59
[2018-10-31 20:00] VITALS: BP 121/52
[2018-10-31] MEDS: ATORVASTATIN 10 MG TABLET PO SCH (20:21)
[2018-10-31] MEDS: FOLIC ACID/VITAMIN B COMP W-C TABLET PO SCH (20:21)
--- NOTE | 2018-10-31 20:46 | NUR ---
Pt resting in bed. AAO x1-2. No acute distress noted. Denies pain or discomfort. Due meds given as ordered. Safety measures maintained. Call light and personal belongings within reach. Will continue to monitor.
[2018-11-01] MEDS: IPRATROPIUM BROMIDE 0.5 MG/2.5 ML NEBU NEB SCH ×4 (00:36→19:30)
[2018-11-01 05:54] VITALS: BP 123/63
[2018-11-01] MEDS: BLOOD SUGAR DIAGNOSTIC 1 EACH STRIP VI SCH ×4 (06:37→20:26)
[2018-11-01] MEDS: ALBUTEROL SULFATE 1.25 MG/3 ML NEBU NEB SCH ×4 (07:11→19:30)
[2018-11-01 07:25] LABS: CARBON DIOXIDE 32 mmol/L (21-32); CHLORIDE 101 mmol/L (98-107); CREATININE 1.9 mg/dL (0.6-1.3); GLUCOSE 166 mg/dL (74-106); POTASSIUM 3.5 mmol/L (3.5-5.1); UREA NITROGEN, BLOOD 43 mg/dL (7-18)
[2018-11-01] MEDS: ASPIRIN 81 MG TAB.CHEW PO SCH (08:01)
[2018-11-01] MEDS: DULOXETINE 20 MG CAPSULE.DR PO SCH (08:01)
[2018-11-01] MEDS: BUMETANIDE 1 MG TABLET PO SCH ×2 (08:02→17:05)
[2018-11-01] MEDS: ALLOPURINOL 100 MG TABLET PO SCH (08:02)
[2018-11-01] MEDS: TAMSULOSIN HCL 0.4 MG CAP.SR.24H PO SCH (08:02)
[2018-11-01] MEDS: MAGNESIUM OXIDE 400 MG TABLET PO SCH (08:02)
[2018-11-01] MEDS: FAMOTIDINE 20 MG TABLET PO SCH (08:02)
[2018-11-01] MEDS: LOSARTAN POTASSIUM 25 MG TABLET PO SCH (08:03)
[2018-11-01] MEDS: DOCUSATE SODIUM 100 MG CAPSULE PO SCH ×2 (08:03→17:05)
[2018-11-01] MEDS: SPIRONOLACTONE 25 MG TABLET PO SCH (08:03)
[2018-11-01] MEDS: METOPROLOL SUCCINATE XL 50 MG TAB.SR.24H PO SCH (08:03)
[2018-11-01] MEDS: INSULIN LISPRO 1000 UNITS/10 ML VIAL(HUMALOG) SQ PRN ×3 (08:07→17:08)
[2018-11-01] MEDS: CLOTRIMAZOLE 1% CREAM 30 GM TUBE TOP SCH ×2 (08:08→17:05)
--- NOTE | 2018-11-01 08:15 | NUR ---
Received patient, awake, alert x3. Denies any pain at the moment. Not in any form of distress, no chest pains or SOB noted. Maintained on fluids restriction of 1500/day, patient informed. Morning care done. Will continue to monitor.
[2018-11-01 08:20] VITALS: BP 127/65
[2018-11-01 13:29] LABS: IRON, SERUM 49 ug/dL (50-175)
[2018-11-01] MEDS: ACETAMINOPHEN 325 MG TABLET PO PRN (13:45)
--- NOTE | 2018-11-01 13:45 | NUR ---
Up with physical therapy, needs maximum assistance with ambulation. Complained of head ache, BP 130/70. No other associated S/S. PRN Tylenol given.
[2018-11-01 16:00] VITALS: BP 105/54
[2018-11-01] MEDS ORDERED: BISACODYL 5 MG TABLET.DR PO ONE (16:45)
[2018-11-01] MEDS: MINERAL OIL/PETROLATUM,WHITE 57 GM TUBE TOP PRN (17:05)
[2018-11-01] MEDS: Z GUARD REMEDY PASTE 57 GM TUBE TOP PRN (17:06)
[2018-11-01 19:47] VITALS: BP 101/48
[2018-11-01] MEDS: ATORVASTATIN 10 MG TABLET PO SCH (20:53)
[2018-11-01] MEDS: FOLIC ACID/VITAMIN B COMP W-C TABLET PO SCH (20:53)
[2018-11-02] MEDS: IPRATROPIUM BROMIDE 0.5 MG/2.5 ML NEBU NEB SCH ×4 (00:23→20:06)
[2018-11-02] MEDS: ALBUTEROL SULFATE 1.25 MG/3 ML NEBU NEB SCH ×4 (00:23→20:06)
[2018-11-02 06:12] VITALS: BP 125/59
[2018-11-02] MEDS: BLOOD SUGAR DIAGNOSTIC 1 EACH STRIP VI SCH ×4 (06:30→20:45)
--- NOTE | 2018-11-02 06:41 | NUR ---
End of the shift note Patient was stable throughout the shift and had a good sleep last night with help of Ambien 5 mg tablet. No acute distress or SOB was noted. On room air. No Complain of pain. Patient assessed. All due medication given as ordered and well tolerated. Put Eucerin cream on her feet and legs two times to prevent dryness. Accu check done, BS 127 @ 2100 with no coverage based on sliding scale, BS: 167 @0630. Diaper changed multiple times, Keep her clean and dry. All needs attended promptly. Safety measures maintained, Fall precaution observed, Bed in low position, brake and alarm on, side rails up x2 for safety. Call light and personal belongings within reach. Continue to monitor and will endorse to the oncoming day shift nurse.
[2018-11-02] MEDS: BUMETANIDE 1 MG TABLET PO SCH ×2 (08:05→17:08)
[2018-11-02] MEDS: ALLOPURINOL 100 MG TABLET PO SCH (08:05)
[2018-11-02] MEDS: DOCUSATE SODIUM 100 MG CAPSULE PO SCH ×2 (08:05→17:08)
[2018-11-02] MEDS: FAMOTIDINE 20 MG TABLET PO SCH (08:05)
[2018-11-02] MEDS: MAGNESIUM OXIDE 400 MG TABLET PO SCH (08:05)
[2018-11-02] MEDS: SPIRONOLACTONE 25 MG TABLET PO SCH (08:05)
[2018-11-02] MEDS: TAMSULOSIN HCL 0.4 MG CAP.SR.24H PO SCH (08:05)
[2018-11-02] MEDS: ASPIRIN 81 MG TAB.CHEW PO SCH (08:05)
[2018-11-02] MEDS: DULOXETINE 20 MG CAPSULE.DR PO SCH (08:06)
[2018-11-02] MEDS: METOPROLOL SUCCINATE XL 50 MG TAB.SR.24H PO SCH (08:06)
[2018-11-02] MEDS: LOSARTAN POTASSIUM 25 MG TABLET PO SCH (08:06)
[2018-11-02] MEDS: CLOTRIMAZOLE 1% CREAM 30 GM TUBE TOP SCH ×2 (08:07→17:09)
[2018-11-02] MEDS: INSULIN LISPRO 1000 UNITS/10 ML VIAL(HUMALOG) SQ PRN ×2 (08:08→17:14)
[2018-11-02 08:26] VITALS: BP 133/61
--- NOTE | 2018-11-02 09:13 | NUR ---
Patient being assisted higher up in bed at this time, all AM medications taken at this time, no complaints of pain, no signs of distress noted, call light in reach, bed locked and in lowest position, all needs met at this time
[2018-11-02 16:21] VITALS: BP 114/40
--- NOTE | 2018-11-02 17:39 | NUR ---
No SOB noted this shift, no signs of distress, periodic confusion noted this shift, confusion in this patient is a normal finding Addendum: 11/03/18 at 1024 by CLAUDIA GARCIA RN RN NO changes this shift
[2018-11-02 19:25] VITALS: BP 107/72
--- NOTE | 2018-11-02 19:25 | NUR ---
Alert and oriented x 2-3. No pain, SOB or distress noted upon assessment. Safety measures maintained. Photos taken for weekly assessment of skin. Fall precaution observed. Bed in low position, brake and alarm on, side rails up x2 for safety. Call light and personal belongings within reach. Will continue to monitor.
[2018-11-02] MEDS: FOLIC ACID/VITAMIN B COMP W-C TABLET PO SCH (20:43)
[2018-11-02] MEDS: ATORVASTATIN 10 MG TABLET PO SCH (20:43)
[2018-11-03] MEDS: ALBUTEROL SULFATE 1.25 MG/3 ML NEBU NEB SCH ×4 (00:45→19:12)
[2018-11-03] MEDS: IPRATROPIUM BROMIDE 0.5 MG/2.5 ML NEBU NEB SCH ×4 (00:45→19:12)
--- NOTE | 2018-11-03 00:45 | NUR ---
Pt asleep. No s/s of respiratory distress noted. HHN tx not given. GANESH Oneill notified.
[2018-11-03 04:30] VITALS: BP 127/65
[2018-11-03] MEDS: BLOOD SUGAR DIAGNOSTIC 1 EACH STRIP VI SCH ×4 (06:32→20:26)
--- NOTE | 2018-11-03 06:48 | NUR ---
Patient slept on and off throughout the night. No C/O pain. All due medication given-tolerated well. Refused 0130 breathing treatment. All needs attended promptly. Safety measures maintained. Fall precaution observed, with bed in lowest position and side rails up bilaterally for safety. Call light and personal belongings within reach. Will endorse to oncoming shift accordingly.
[2018-11-03 07:00] VITALS: BP 111/56
--- NOTE | 2018-11-03 08:04 | NUR ---
Patient being assisted to wheelchair at this time, all AM medications taken at this time, no complaints of pain, no signs of distress noted, call light in reach, wheelchair is locked, all needs met at this time
[2018-11-03] MEDS: SPIRONOLACTONE 25 MG TABLET PO SCH (08:13)
[2018-11-03] MEDS: MAGNESIUM OXIDE 400 MG TABLET PO SCH (08:13)
[2018-11-03] MEDS: ASPIRIN 81 MG TAB.CHEW PO SCH (08:13)
[2018-11-03] MEDS: TAMSULOSIN HCL 0.4 MG CAP.SR.24H PO SCH (08:13)
[2018-11-03] MEDS: BUMETANIDE 1 MG TABLET PO SCH ×2 (08:13→16:55)
[2018-11-03] MEDS: ALLOPURINOL 100 MG TABLET PO SCH (08:13)
[2018-11-03] MEDS: FAMOTIDINE 20 MG TABLET PO SCH (08:13)
[2018-11-03] MEDS: DOCUSATE SODIUM 100 MG CAPSULE PO SCH ×2 (08:13→16:56)
[2018-11-03] MEDS: DULOXETINE 20 MG CAPSULE.DR PO SCH (08:14)
[2018-11-03] MEDS: CLOTRIMAZOLE 1% CREAM 30 GM TUBE TOP SCH ×2 (08:15→16:56)
[2018-11-03] MEDS: METOPROLOL SUCCINATE XL 50 MG TAB.SR.24H PO SCH (08:16)
[2018-11-03] MEDS: LOSARTAN POTASSIUM 25 MG TABLET PO SCH (08:16)
[2018-11-03] MEDS: INSULIN LISPRO 1000 UNITS/10 ML VIAL(HUMALOG) SQ PRN ×2 (12:27→16:55)
[2018-11-03] MEDS ORDERED: METOLAZONE 5 MG TABLET PO ONE (13:15)
[2018-11-03 16:00] VITALS: BP 113/65
[2018-11-03 19:48] VITALS: BP 111/53
[2018-11-03] MEDS: FOLIC ACID/VITAMIN B COMP W-C TABLET PO SCH (20:26)
[2018-11-03] MEDS: ATORVASTATIN 10 MG TABLET PO SCH (20:26)
[2018-11-04] MEDS: ALBUTEROL SULFATE 1.25 MG/3 ML NEBU NEB SCH ×4 (00:38→19:01)
[2018-11-04] MEDS: IPRATROPIUM BROMIDE 0.5 MG/2.5 ML NEBU NEB SCH ×4 (00:38→19:01)
[2018-11-04] MEDS: BLOOD SUGAR DIAGNOSTIC 1 EACH STRIP VI SCH ×4 (06:42→20:16)
[2018-11-04 06:57] VITALS: BP 112/46
[2018-11-04 07:00] VITALS: BP 111/44
--- NOTE | 2018-11-04 07:08 | NUR ---
End of the shift note Patient was stable throughout the shift and had an intermittent sleep last night. No acute distress or SOB was noted. On room air. No Complain of pain. Patient assessed. All due medication given as ordered and well tolerated. Put Eucerin cream on her feet and legs two times to prevent dryness. Accu check done, BS 159 @ 2100 with no coverage based on sliding scale, BS: 157 @0630. Diaper changed multiple times, Keep her clean and dry. All needs attended promptly. Safety measures maintained, Fall precaution observed, Bed in low position, brake and alarm on, side rails up x2 for safety. Call light and personal belongings within reach. Continue to monitor and will endorse to the oncoming day shift nurse.
[2018-11-04 07:20] LABS: BASOPHILS # (AUTO) 0.1 K/uL (0.0-8.0); BASOPHILS % (AUTO) 2.3 % (0.0-2.0); EOSINOPHILS # (AUTO) 0.3 K/uL (0.0-0.7); EOSINOPHILS % (AUTO) 7.7 % (0.0-7.0); HEMATOCRIT 32.1 % (31.2-41.9); HEMOGLOBIN 10.3 g/dL (10.9-14.3); LYMPHOCYTES # (AUTO) 0.7 K/uL (20.0-40.0); LYMPHOCYTES % (AUTO) 16.8 % (20.5-51.5); MEAN CORPUSCULAR HEMOGLOBIN 32.8 uug (24.7-32.8); MEAN CORPUSCULAR HGB CONC 32 g/dL (32.3-35.6); MEAN CORPUSCULAR VOLUME 101.6 fL (75.5-95.3); MONOCYTES # (AUTO) 0.6 K/uL (2.0-10.0); NEUTROPHILS # (AUTO) 2.3 K/uL (1.8-8.9); NEUTROPHILS % (AUTO) 58.2 % (38.5-71.5); PLATELET COUNT (AUTO) 121 K/uL (179-408); RED BLOOD CELL COUNT(AUTO) 3.16 MIL/uL (3.63-4.92)
[2018-11-04 07:30] LABS: CARBON DIOXIDE 30 mmol/L (21-32); CHLORIDE 98 mmol/L (98-107); CREATININE 2.1 mg/dL (0.6-1.3); GLUCOSE 169 mg/dL (74-106); MAGNESIUM 1.5 mg/dL (1.8-2.4); PHOSPHOROUS 3.6 mg/dL (2.5-4.9); POTASSIUM 3.4 mmol/L (3.5-5.1); UREA NITROGEN, BLOOD 49 mg/dL (7-18)
[2018-11-04 08:10] LABS: EOSINOPHILS % (MANUAL) 8 % (0-8); LYMPHOCYTES % (MANUAL) 17 % (20-40); MONOCYTES % (MANUAL) 15 % (2-10); NEUTROPHILS % (MANUAL) 60 % (42-75)
[2018-11-04] MEDS: SPIRONOLACTONE 25 MG TABLET PO SCH (08:28)
[2018-11-04] MEDS: MAGNESIUM OXIDE 400 MG TABLET PO SCH (08:28)
[2018-11-04] MEDS: METOPROLOL SUCCINATE XL 50 MG TAB.SR.24H PO SCH (08:28)
[2018-11-04] MEDS: ALLOPURINOL 100 MG TABLET PO SCH (08:28)
[2018-11-04] MEDS: TAMSULOSIN HCL 0.4 MG CAP.SR.24H PO SCH (08:28)
[2018-11-04] MEDS: FAMOTIDINE 20 MG TABLET PO SCH (08:29)
[2018-11-04] MEDS: BUMETANIDE 1 MG TABLET PO SCH ×2 (08:29→16:21)
[2018-11-04] MEDS: CLOTRIMAZOLE 1% CREAM 30 GM TUBE TOP SCH ×2 (08:29→16:21)
[2018-11-04] MEDS: LOSARTAN POTASSIUM 25 MG TABLET PO SCH (08:29)
[2018-11-04] MEDS: ASPIRIN 81 MG TAB.CHEW PO SCH (08:29)
[2018-11-04] MEDS: DOCUSATE SODIUM 100 MG CAPSULE PO SCH ×2 (08:29→16:20)
[2018-11-04] MEDS: DULOXETINE 20 MG CAPSULE.DR PO SCH (08:30)
[2018-11-04] MEDS: INSULIN LISPRO 1000 UNITS/10 ML VIAL(HUMALOG) SQ PRN ×3 (08:31→16:22)
[2018-11-04] MEDS ORDERED: POTASSIUM CHLORIDE 10 MEQ TAB.PRT.SR PO ONE (15:00)
[2018-11-04] MEDS ORDERED: MAGNESIUM OXIDE 400 MG TABLET PO ONE (15:00)
[2018-11-04 16:00] VITALS: BP 98/51
[2018-11-04] MEDS: ATORVASTATIN 10 MG TABLET PO SCH (20:12)
[2018-11-04] MEDS: FOLIC ACID/VITAMIN B COMP W-C TABLET PO SCH (20:12)
[2018-11-04] MEDS: MELATONIN 3 MG TABLET PO PRN (20:16)
[2018-11-04 20:50] VITALS: BP 102/48
[2018-11-05] MEDS: IPRATROPIUM BROMIDE 0.5 MG/2.5 ML NEBU NEB SCH ×3 (01:09→13:01)
[2018-11-05] MEDS: ALBUTEROL SULFATE 1.25 MG/3 ML NEBU NEB SCH ×3 (01:09→13:01)
[2018-11-05 04:56] VITALS: BP 107/49
[2018-11-05] MEDS: BLOOD SUGAR DIAGNOSTIC 1 EACH STRIP VI SCH ×2 (06:47→11:43)
[2018-11-05 08:00] VITALS: BP 142/55
[2018-11-05] MEDS: INSULIN LISPRO 1000 UNITS/10 ML VIAL(HUMALOG) SQ PRN ×2 (08:19→11:49)
[2018-11-05] MEDS: DULOXETINE 20 MG CAPSULE.DR PO SCH (08:21)
[2018-11-05] MEDS: TAMSULOSIN HCL 0.4 MG CAP.SR.24H PO SCH (08:21)
[2018-11-05] MEDS: FAMOTIDINE 20 MG TABLET PO SCH (08:21)
[2018-11-05] MEDS: BUMETANIDE 1 MG TABLET PO SCH (08:21)
[2018-11-05 08:22] VITALS: BP 142/55
[2018-11-05] MEDS: SPIRONOLACTONE 25 MG TABLET PO SCH (08:22)
[2018-11-05] MEDS: LOSARTAN POTASSIUM 25 MG TABLET PO SCH (08:22)
[2018-11-05] MEDS: ASPIRIN 81 MG TAB.CHEW PO SCH (08:22)
[2018-11-05] MEDS: MAGNESIUM OXIDE 400 MG TABLET PO SCH (08:22)
[2018-11-05] MEDS: METOPROLOL SUCCINATE XL 50 MG TAB.SR.24H PO SCH (08:22)
[2018-11-05] MEDS: DOCUSATE SODIUM 100 MG CAPSULE PO SCH (08:23)
[2018-11-05] MEDS: ALLOPURINOL 100 MG TABLET PO SCH (08:23)
[2018-11-05] MEDS: CLOTRIMAZOLE 1% CREAM 30 GM TUBE TOP SCH (08:23)
--- NOTE | 2018-11-05 16:05 | NUR ---
Patient refuse wound picture prior to discharge despite of encouragement and education.
--- NOTE | 2018-11-05 16:05 | NUR ---
Patient discharge around 3pm via [facility] in stable condition with 2 EMT. not in distress. prescription was fax to pharmacy. belongings given to patient. Medication list given and lab test. Appointment forms given. verbalize understanding.
== END 2018-11-05 15:20 | disposition home health service (06) | DRG 189 ==
PROVIDERS: ADMIT Physical Medicine & Rehabilitation Pain Medicine; ATTEND Physical Medicine & Rehabilitation Pain Medicine
DX: J96.90 Respiratory failure, unspecified, unspecified whether with hypoxia or hypercapnia (principal); I50.43 Acute on chronic combined systolic (congestive) and diastolic (congestive) heart failure; I13.0 Hypertensive heart and chronic kidney disease with heart failure and stage 1 through stage 4 chronic kidney disease, or unspecified chronic kidney disease; J44.1 Chronic obstructive pulmonary disease with (acute) exacerbation; E46 Unspecified protein-calorie malnutrition; Z68.42 Body mass index [BMI] 45.0-49.9, adult; I42.9 Cardiomyopathy, unspecified; E11.22 Type 2 diabetes mellitus with diabetic chronic kidney disease; N18.3 Chronic kidney disease, stage 3 (moderate); D64.9 Anemia, unspecified; I07.1 Rheumatic tricuspid insufficiency; I25.5 Ischemic cardiomyopathy; E11.42 Type 2 diabetes mellitus with diabetic polyneuropathy; E66.01 Morbid (severe) obesity due to excess calories; G47.00 Insomnia, unspecified; Z87.440 Personal history of urinary (tract) infections; Z87.01 Personal history of pneumonia (recurrent); Z95.810 Presence of automatic (implantable) cardiac defibrillator; Z87.891 Personal history of nicotine dependence; Z91.410 Personal history of adult physical and sexual abuse; Z91.411 Personal history of adult psychological abuse; F39 Unspecified mood [affective] disorder
CPT/HCPCS: 36415; 70030-TC; 71045; 83550; 83735; 84100; 85025; 92507; 92523; 93005; 93307; 94640; 94664; 97110; 97112; 97116; 97165; 97530; 97535; A4663; J1815; J3590; J8499